=== PATIENT | male | born 1975 | race Caucasian/White ===

== ENCOUNTER 2021-06-18 17:24 | Emergency (ER) | payer OTHER ==
[~2021-06-18 17:24] MED LIST: TESSALON PERLE100 M1 PO
== END 2021-06-18 22:45 | disposition other institution (70) ==
LOC: FER 17:24
DX: S52.102A Unspecified fracture of upper end of left radius, initial encounter for closed fracture (principal); S52.002A Unspecified fracture of upper end of left ulna, initial encounter for closed fracture; W19.XXXA Unspecified fall, initial encounter
CPT/HCPCS: 73070; 73080; 96374; 96375; 96376; J1170; J3360